=== PATIENT | female | born 1960 | race Caucasian/White ===

== ENCOUNTER → 2016-09-06 | Day surgery (SDC) | payer OTHER ==
[~2016-09-06] MED LIST: ACIPHEX20 MG PO; AMBIEN PO; AMITIZA24 MCG PO; AMITRYPTYLINE PO; AMOXICILLIN500 M1; ASPIRIN EC81 M1 PO; CELEXA PO; CHRONULAC10 GM/151; CITALOPRAM HBR40 MG PO; DITROPAN5 MG PO; FAST RELIEF LAX10 MG PR; FIBER LAX625 MG PO; FIBER LAXATIVE500 MG PO; IMITREX PO; LASIX PO; LASIX20 MG PO; LINZESS145 MCG PO; LIPITOR PO; LIPITOR20 MG PO; LORTAB 10/500 T1 TAB PO; MAG-OX 400400 MG; MIRALAX119 GM PO; PANTOPRAZOLE SO40 MG PO; PHENERGAN25 M1; PRILOSEC20 M1 PO; PROTONIX PO; SUMATRIPTAN SU100 MG PO; TROSPIUM CHLORI20 MG PO; VOLTAREN75 MG
--- NOTE | ~2016-09-06 | OR ---
Unit #: [id number] #: [id number] Patient: LUCA ROBLES [id number] [address] [place], [place] [address] [id number] O MR#: [id number] NAME: LUCA ROBLES. ROOM: Date of Procedure: 09/06/2016 Admission Date: 09/06/2016 Surgeon: Ga Mohamud M.D. : 1960 Attending Physician: Ga Mohamud M.D. [facility]PERATIVE REPORT PRIMARY CARE PHYSICIAN Skylar Shepard. PREOPERATIVE DIAGNOSES Epigastric and right upper quadrant pain, postprandial nausea. POSTOPERATIVE DIAGNOSIS Normal upper gastrointestinal tract to third portion of the duodenum. PROCEDURE PERFORMED Esophagogastroduodenoscopy to third portion of the duodenum ANESTHESIA Monitored anesthesia. INDICATIONS FOR PROCEDURE A 56-year-old female, who was complaining of some abdominal discomfort and nausea. CT scan showed a marked stool burden in the colon, but no other findings. Ultrasound of gallbladder showed possible sludge, but no other abnormalities. Followup HIDA scan showed an ejection fraction 92%. The patients was started on some Linzess for constipation, predominant irritable bowel syndrome and she has had improvement, but to ensure there is no upper GI component since she had postprandial nausea and EGD was indicated. DESCRIPTION OF PROCEDURE The patient was admitted to [facility], positively identified, and transported to the endoscopy unit. After appropriate monitoring and positioning, a bite block was placed and she was sedated by the nurse accounts payable analyst. The endoscope was passed through the oral cavity into the esophagus under direct vision. We passed through the esophagus into the stomach, insufflated the stomach, passed through the pylorus down to the third portion of duodenum. Duodenum and duodenal bulb were normal. As we came back in the stomach, the entire gastric mucosa was visualized and was normal. GE junction was well demarcated at 40 cm from the incisors. There was no hiatal hernia, no esophagitis, no Mcintosh mucosa. The esophagus and larynx were normal. The patient tolerated the procedure well and transported to recovery in stable condition. Findings were discussed with her friend as requested. At this time, I believe her symptoms mostly related to her irritable bowel syndrome as her GI tract studies and laboratories are essentially normal. Unit #: [id number] #: [id number] Patient: LUCA ROBLES Dictated by... Lexus Ortiz/yelitza TD: 09/06/2016 08:35 JOB #: [id number] OPERATIVE REPORT Page 1 of 1 X Ga Mohamud MD PROCEDURE OPERATIVE NOTE
== END | disposition home or self-care (01) ==
LOC: COPS 05:42
DX: R10.13 Epigastric pain (principal); R10.11 Right upper quadrant pain; R11.0 Nausea; K21.9 Gastro-esophageal reflux disease without esophagitis; F17.210 Nicotine dependence, cigarettes, uncomplicated; Z88.1 Allergy status to other antibiotic agents; Z87.01 Personal history of pneumonia (recurrent); Z79.82 Long term (current) use of aspirin; Z79.899 Other long term (current) drug therapy

== ENCOUNTER → 2016-10-02 | Outpatient (CLI) | payer OTHER ==
--- NOTE | ~2016-10-02 | EKG ---
PATIENT: LUCA ROBLES UNIT #: [id number] Ventricular Rate: 65 BPM Atrial Rate: 65 BPM P-R Interval: 150 ms QRS Duration: 88 ms Q-T Interval: 424 ms QTC Calculation(Bezet): 440 ms P [place]: 44 degrees Calculated R [place]: 47 degrees Calculated T [place]: 53 degrees Diagnosis Line: Sinus rhythm with Premature atrial complexes Diagnosis Line: Otherwise normal ECG Diagnosis Line: No previous ECGs available Diagnosis Line: Confirmed by QASIM GARCIA MD ([id number]) on 10/03/2016 Diagnosis Line: 5:02:12 AM INTERPRETING MD: JOSE STANTON
[2016-10-02 15:15] LABS: HEMATOCRIT 41.2 % (35.0-45.0); HEMOGLOBIN 13.7 gm/dL (12.0-16.0); MEAN CELL VOLUME 93.1 FL (83-96); MEAN CORPUSCULAR HEMOGLOBIN 30.8 PG (28-34); MEAN CORPUSCULAR HGB CONC 33.1 g/dL (30-36); MEAN PLATELET VOLUME 9.6 FL (6.5-11.5); RED BLOOD COUNT 4.43 X10e (3.90-5.30); RED CELL DISTRIBUTION WIDTH 13.8 % (11.0-15.5); WHITE BLOOD COUNT 7.2 X10e3 (4.0-10.5)
[2016-10-02 15:41] LABS: BUN/CREATININE RATIO 13.75; CALCIUM SERUM 9.3 mg/dL (8.4-10.2); CREATININE SERUM 0.8 mg/dL (0.6-1.4); GLOM FILT RATE Estimated 83.1 mL/min (>60); POTASSIUM 4.3 mmol/L (3.5-5.1)
== END | disposition home or self-care (01) ==
LOC: CAMB 14:41
PROVIDERS: Specialist
DX: Z01.818 Encounter for other preprocedural examination (principal); K42.9 Umbilical hernia without obstruction or gangrene
CPT/HCPCS: 36415; 80048; 85027; 93005

== ENCOUNTER → 2016-10-08 | Day surgery (SDC) | payer OTHER ==
--- NOTE | ~2016-10-08 | OR ---
Unit #: [id number] #: [id number] Patient: LUCA RICHARDSON [id number] [place], [place] [address] [id number] O MR#: [id number] NAME: LUCA RICHARDSON. ROOM: Date of Procedure: 10/08/2016 Admission Date: 10/08/2016 Surgeon: Ga Mohamud M.D. : 1960 Attending Physician: Ga Mohamud M.D. Primary Care Physician: [facility] OPERATIVE REPORT PRIMARY CARE PHYSICIAN Unknown. PREOPERATIVE DIAGNOSIS Umbilical hernia. POSTOPERATIVE DIAGNOSIS Umbilical hernia. PROCEDURE PERFORMED Open repair of umbilical hernia with placement of a Ventralex mesh. ANESTHESIA General endotracheal anesthesia. ESTIMATED BLOOD LOSS Less than 10 mL. INDICATIONS FOR PROCEDURE Ms. Richardson is a 56-year-old female, who presented in the office complaining of pain at the umbilicus. On examination, she had a small reducible umbilical hernia, but the patient stated that when she did any lifting, coughing, or sneezing, it caused her significant discomfort. Preoperative evaluation failed to reveal an other etiology for her discomfort and the patient want to proceed with umbilical hernia repair. DESCRIPTION OF PROCEDURE The patient was admitted to [facility], positively identified, and transported to the operating room, and after induction of general endotracheal anesthesia, she received IV antibiotics per SCIP protocol. She was prepped and draped in usual sterile fashion. A transverse incision in the skin line was made below the umbilicus and the umbilical skin was dissected away from the hernia sac. The hernia sac was elevated and opened at the level of the fascia and excised. The omentum that was associated with the hernia sac was reduced. The fascia was grasped and elevated. The Ventralex mesh was placed and opened up circumferentially and pulled up against the anterior abdominal wall. The mesh was secured with 0 Ethibond interrupted sutures. After the mesh was adequately positioned, secured, and the fascia was closed over the mesh, 30 mL of 0.5% Marcaine with epinephrine was infiltrated in the fascia and soft tissue. There was adequate hemostasis. An umbilicoplasty was performed. Then, the soft tissue was closed with 3-0 Vicryl interrupted suture and the skin was reapproximated with 4-0 Monocryl subcuticular Unit #: [id number] #: [id number] Patient: LUCA RICHARDSON closure and Dermabond skin adhesive. Sponges and needle counts were correct x3. The patient tolerated the procedure well and transported to recovery in stable condition. Findings and postoperative instructions were discussed with her family. Dictated by... Lexus Ortiz/yelitza TD: 10/08/2016 23:04 JOB #: [id number] OPERATIVE REPORT Page 1 of 1 X Ga Mohamud MD X PROCEDURE OPERATIVE NOTE
== END | disposition home or self-care (01) ==
LOC: CSUR 11:56
DX: K42.9 Umbilical hernia without obstruction or gangrene (principal); K21.9 Gastro-esophageal reflux disease without esophagitis; N32.81 Overactive bladder; E78.5 Hyperlipidemia, unspecified; F41.8 Other specified anxiety disorders; F17.210 Nicotine dependence, cigarettes, uncomplicated; Z87.01 Personal history of pneumonia (recurrent); Z86.718 Personal history of other venous thrombosis and embolism; Z88.1 Allergy status to other antibiotic agents; Z79.82 Long term (current) use of aspirin; Z79.899 Other long term (current) drug therapy
CPT/HCPCS: J0690; J1100; J1885; J2405; J3010